=== PATIENT | female | born 1940 ===

== ENCOUNTER 2017-02-13 14:45 | Emergency (ER) | payer MEDICARE ==
[2017-02-13] MEDS ORDERED: Lidocaine 2% w Epi 1:100,000 Inj IJ ONE (17:10)
--- NOTE | 2017-02-13 17:19 | C.PDOC ---
History Of Present Illness 76 year old female presents to the ED for evaluation after she slipped and fell in her tub earlier today. Patient states she hit the back of her head and has an injury to the area. She also states she fell onto her right arm and has pain to the area. She denies LOC, active bleeding, neck pain, back pain, abdominal pain, nausea, vomiting, extremity numbness/weakness. - HPI Time Seen by Provider: 02/13/17 16:55 Chief Complaint (Nursing): Trauma History Per: Patient History/Exam Limitations: no limitations Onset/Duration Of Symptoms: Hrs Location Of Injury: Posterior: Head Additional History Per: Patient Past Medical History Reviewed: Historical Data, Nursing Documentation, Vital Signs Vital Signs: Last Vital Signs Temp 98.6 F 02/13/17 17:23 Pulse 100 H 02/13/17 17:23 Resp 20 02/13/17 17:23 BP 128/84 02/13/17 17:23 Pulse Ox 97 02/13/17 17:54 - Medical History PMH: HTN, Hypercholesterolemia Surgical History: No Surg Hx Family History: States: Unknown Family Hx - Social History Hx Tobacco Use: No Hx Alcohol Use: No Hx Substance Use: No - Immunization History Hx Influenza Vaccination: Yes (2017) Hx Pneumococcal Vaccination: No Review Of Systems Gastrointestinal: Negative for: Nausea, Vomiting, Abdominal Pain Musculoskeletal: Negative for: Neck Pain, Back Pain Neurological: Positive for: Other (+head injury, no LOC ). Negative for: Weakness, Numbness Physical Exam - Physical Exam Appears: Non-toxic, No Acute Distress Skin: Normal Color, Warm, Dry Head: Laceration (1cm, to right occipital scalp. no active bleeding ) Eye(s): bilateral: Normal Inspection Oral Mucosa: Moist Neck: No Midline Cervical Tenderness, No Paracervical Tenderness, Supple Chest: Symmetrical, No Deformity, No Tenderness Cardiovascular: Rhythm Regular, No Murmur Respiratory: Normal Breath Sounds, No Rales, No Rhonchi, No Wheezing Gastrointestinal/Abdominal: Soft, No Tenderness, No Guarding, No Rebound Extremity: Normal ROM, No Tenderness, Capillary Refill (less than 2 seconds ), No Deformity, No Swelling Neurological/Psych: Oriented x3, Normal Speech, Normal Cognition, Normal Sensation Gait: Steady ED Course And Treatment O2 Sat by Pulse Oximetry: 97 (on RA) Pulse Ox Interpretation: Normal Laceration - Laceration Repair right occipital scalp Wound Length (In cm): 1 Wound Examination: Irrigated With Saline, No FB With Wound Exploration, No Tendon Injury With Wound Exploration Wound Closure: Ramses Wound Complexity: Simple Medical Decision Making Medical Decision Making: Progress: Tetanus immunization administered IM. Disposition Counseled Patient/Family Regarding: Diagnosis, Need For Followup - Disposition Disposition: HOME/ ROUTINE Disposition Time: 17:17 Condition: STABLE Additional Instructions: Follow up with your doctor or the Emergency Department for staple removal in 10- 14 days. Return sooner with any other concerns. Instructions: Staple Care (ED) Forms: [facility] (Macedonian), General Discharge Instructions - Clinical Impression Clinical Impression: Laceration of scalp - Scribe Statement The provider has reviewed the documentation as recorded by the Scribe (Samantha Griffin) Provider Attestation: All medical record entries made by the Scribe were at my direction and personally dictated by me. I have reviewed the chart and agree that the record accurately reflects my personal performance of the history, physical exam, medical decision making, and the department course for this patient. I have also personally directed, reviewed, and agree with the discharge instructions and disposition.
[2017-02-13 17:28] VITALS: BP 128/84; PULSE 100; RESP 20; TEMP 98.6
[2017-02-13 17:52] VITALS: O2SAT 97
== END 2017-02-13 17:29 | disposition home or self-care (01) ==
LOC: C.ER 14:45
DX: S01.01XA Laceration without foreign body of scalp, initial encounter (principal); W18.2XXA Fall in (into) shower or empty bathtub, initial encounter